=== PATIENT | male | born 1950 | race Caucasian/White ===

== ENCOUNTER → 2019-01-31 | Outpatient (CLI) | payer OTHER ==
[~2019-01-31] MED LIST: ACCU-CHEK1 EAC1 MC; ASPIRIN81 M1 PO; ATORVASTATIN CA80 M1 PO; CLEOCIN150 MG PO; Clopidogrel75 MG PO; FENOFIBRATE145 M1 PO; FLAGYL500 MG PO; METOPROLOL TART50 M1 PO; NORVASC5 MG PO; Peridex 473 ML473 ML PO; VITAMIN D50000 I3 PO; ZANTAC150 MG PO; ZESTRIL20 MG PO
== END | disposition home or self-care (01) ==
LOC: CARD 12:48
DX: R01.1 Cardiac murmur, unspecified (principal)

== ENCOUNTER → 2019-03-01 | Outpatient (CLI) | payer OTHER | END | disposition home or self-care (01) | LOC: US 14:37 | DX: E11.9 Type 2 diabetes mellitus without complications (principal); I10 Essential (primary) hypertension; F17.200 Nicotine dependence, unspecified, uncomplicated ==

== ENCOUNTER → 2020-01-16 | Outpatient (CLI) | payer OTHER | END | disposition home or self-care (01) | LOC: CARD 13:52 | PROVIDERS: ATTEND Internal Medicine Cardiovascular Disease | DX: R60.0 Localized edema (principal); Z72.0 Tobacco use ==

== ENCOUNTER 2020-11-14 14:20 | Emergency (ER) | payer OTHER ==
[~2020-11-14] VITALS: Ht 172.7 cm; Wt 103.9 kg
[~2020-11-14 14:20] MED LIST changes: -ARTHRITIS PAI42.5 GM T; -CRESTOR20 M1 PO; -FISH OIL CONC1000 M1 PO; -MAGNESIUM OXID420 M1 PO; -METFORMIN HYDR500 MG PO; -VITAMIN D350 MC2 PO
[2020-11-15] MEDS ORDERED: ARTHRITIS PAI42.5 GM T (10:53)
[2020-11-15] MEDS ORDERED: VITAMIN D350 MC2 PO (10:54)
[2020-11-15] MEDS ORDERED: FISH OIL CONC1000 M1 PO (10:58)
[2020-11-15] MEDS ORDERED: MAGNESIUM OXID420 M1 PO (11:00)
[2020-11-15] MEDS ORDERED: METFORMIN HYDR500 MG PO (11:01)
[2020-11-15] MEDS ORDERED: CRESTOR20 M1 PO (11:02)
== END 2020-11-14 16:45 | disposition left against medical advice (07) ==
LOC: ED 14:20
DX: R18.8 Other ascites (principal); K74.60 Unspecified cirrhosis of liver; Z79.82 Long term (current) use of aspirin; Z79.899 Other long term (current) drug therapy

== ENCOUNTER 2020-11-14 18:10 | Inpatient (IN) | payer OTHER ==
[~2020-11-14] VITALS: Ht 172.7 cm; Wt 102.7 kg
[2020-11-14 18:16] VITALS: BP 128/79
[2020-11-15 00:37] LABS: BASO % 0.6 % (0.0-1.0); EOS # 0.1 10*3/uL (0.0-0.4); EOS % 1.6 % (1.0-4.0); HEMATOCRIT 43.6 % (42.0-52.0); LYMPH # 1.2 10*3/uL (1.3-4.4); LYMPH % 16.8 % (27.0-41.0); MEAN CELL VOLUME 99.1 fl (80.0-94.0); MEAN CORPUSCULAR HGB 31.8 pg (27.0-31.0); MEAN CORPUSCULAR HGB CONC 32.1 g/dl (33.0-37.0); MEAN PLATELET VOLUME 10.3 fl (9.6-12.3); MONO # 0.8 10*3/uL (0.1-1.0); MONO % 11.4 % (3.0-9.0); NEUT # 4.9 10*3/uL (2.3-7.9); NEUT % 69.5 % (47.0-73.0); PLATELET COUNT AUTOMATED 257 10*3/uL (130-400); WHITE BLOOD COUNT 7.1 10*3/uL (4.8-10.8)
[2020-11-15 00:54] LABS: ALKALINE PHOSPHATASE 103 U/L (45-117); BUN 9 mg/dl (7-24); CHLORIDE 105 mmol/L (98-107); CREATININE 0.66 mg/dL (0.70-1.30); POTASSIUM 3.9 mmol/L (3.5-5.1); SGOT/AST 24 IU/L (3-35); SGPT/ALT 16 U/L (12-78); SODIUM 135 mmol/L (136-145); TOTAL PROTEIN 7.4 gm/dL (6.4-8.2)
[2020-11-15 01:00] VITALS: BP 121/87
[2020-11-15 06:53] LABS: BASO # 0.1 10*3/uL (0.0-0.1); BASO % 0.7 % (0.0-1.0); EOS # 0.2 10*3/uL (0.0-0.4); EOS % 2.2 % (1.0-4.0); HEMATOCRIT 43.2 % (42.0-52.0); LYMPH # 1.1 10*3/uL (1.3-4.4); LYMPH % 16.4 % (27.0-41.0); MEAN CELL VOLUME 99.1 fl (80.0-94.0); MEAN CORPUSCULAR HGB 32.1 pg (27.0-31.0); MEAN CORPUSCULAR HGB CONC 32.4 g/dl (33.0-37.0); MEAN PLATELET VOLUME 10.5 fl (9.6-12.3); MONO # 0.9 10*3/uL (0.1-1.0); MONO % 13.5 % (3.0-9.0); NEUT # 4.5 10*3/uL (2.3-7.9); NEUT % 66.9 % (47.0-73.0); PLATELET COUNT AUTOMATED 248 10*3/uL (130-400); RED BLOOD COUNT 4.36 10*6/uL (4.50-5.90); WHITE BLOOD COUNT 6.8 10*3/uL (4.8-10.8)
[2020-11-15 06:59] LABS: INTERNATIONAL NORM RATIO 1.2 (2.0-3.5)
[2020-11-15 07:09] LABS: ALBUMIN 3.1 gm/dl (3.1-4.5); BUN 9 mg/dl (7-24); CHLORIDE 102 mmol/L (98-107); POTASSIUM 3.5 mmol/L (3.5-5.1); SODIUM 135 mmol/L (136-145)
[2020-11-15 07:26] VITALS: BP 106/70
[2020-11-15 07:29] LABS: ALKALINE PHOSPHATASE 98 U/L (45-117); CHOLESTEROL 99 mg/dL (<200); LDL CHOLESTEROL 29 mg/dL (9-159); SGOT/AST 19 IU/L (3-35); SGPT/ALT 17 U/L (12-78); TOTAL PROTEIN 7.2 gm/dL (6.4-8.2); TRIGLYCERIDES 116 mg/dl (<150)
[2020-11-15 07:32] LABS: FREE T4 1.03 ng/dl (0.76-1.46)
[2020-11-15 07:42] LABS: VITAMIN D, 25-HYDROXY 38.7 ng/mL (30-100)
[2020-11-15] MEDS ORDERED: ARTHRITIS PAI42.5 GM T (10:53)
[2020-11-15] MEDS ORDERED: VITAMIN D350 MC2 PO (10:54)
[2020-11-15] MEDS ORDERED: FISH OIL CONC1000 M1 PO (10:58)
[2020-11-15] MEDS ORDERED: MAGNESIUM OXID420 M1 PO (11:00)
[2020-11-15] MEDS ORDERED: METFORMIN HYDR500 MG PO (11:01)
[2020-11-15] MEDS ORDERED: CRESTOR20 M1 PO (11:02)
[2020-11-15 11:32] VITALS: BP 113/80
[2020-11-15 14:37] VITALS: BP 94/62
== END 2020-11-15 15:19 | disposition left against medical advice (07) | DRG 433 ==
LOC: ED 18:10 → EDHOLD 22:51 → 5E 22:51
PROVIDERS: Internal Medicine; ADMIT Student in an Organized Health Care Education/Training Program; ATTEND Student in an Organized Health Care Education/Training Program
PROC: 0W9G3ZZ Drainage of Peritoneal Cavity, Percutaneous Approach (ICD-10-PCS; principal; 2020-11-15)
DX: K70.31 Alcoholic cirrhosis of liver with ascites (principal); E44.0 Moderate protein-calorie malnutrition; E87.3 Alkalosis; E87.1 Hypo-osmolality and hyponatremia; I25.10 Atherosclerotic heart disease of native coronary artery without angina pectoris; F10.20 Alcohol dependence, uncomplicated; E55.9 Vitamin D deficiency, unspecified; E11.42 Type 2 diabetes mellitus with diabetic polyneuropathy; F17.210 Nicotine dependence, cigarettes, uncomplicated; E11.65 Type 2 diabetes mellitus with hyperglycemia; F17.200 Nicotine dependence, unspecified, uncomplicated; E53.8 Deficiency of other specified B group vitamins; Z71.6 Tobacco abuse counseling; Z79.899 Other long term (current) drug therapy; Z95.5 Presence of coronary angioplasty implant and graft; Z79.82 Long term (current) use of aspirin; Z79.84 Long term (current) use of oral hypoglycemic drugs; Z68.34 Body mass index [BMI] 34.0-34.9, adult

== ENCOUNTER → 2020-11-14 | Outpatient (CLI) | payer OTHER ==
[~2020-11-14] MED LIST changes: +ARTHRITIS PAI42.5 GM T; +CRESTOR20 M1 PO; +FISH OIL CONC1000 M1 PO; +MAGNESIUM OXID420 M1 PO; +METFORMIN HYDR500 MG PO; +VITAMIN D350 MC2 PO
== END | disposition home or self-care (01) ==
LOC: US 11:06
PROVIDERS: ATTEND Nurse Practitioner Family
DX: R18.8 Other ascites (principal); K80.20 Calculus of gallbladder without cholecystitis without obstruction; R16.0 Hepatomegaly, not elsewhere classified

== ENCOUNTER → 2021-02-03 | Outpatient (CLI) | payer OTHER ==
[~2021-02-03] MED LIST changes: +ARTHRITIS PAI42.5 GM T; +CRESTOR20 M1 PO; +FISH OIL CONC1000 M1 PO; +MAGNESIUM OXID420 M1 PO; +METFORMIN HYDR500 MG PO; +VITAMIN D350 MC2 PO
== END | disposition home or self-care (01) ==
LOC: US 07:18
PROVIDERS: ATTEND Nurse Practitioner Family
DX: K80.20 Calculus of gallbladder without cholecystitis without obstruction (principal); R18.8 Other ascites; R16.0 Hepatomegaly, not elsewhere classified; K74.60 Unspecified cirrhosis of liver

== ENCOUNTER → 2021-03-06 | Outpatient (CLI) | payer OTHER ==
[2021-03-06 09:29] LABS: ACT PARTIAL THROMBO TIME 31.1 SECONDS (20.0-32.1); INTERNATIONAL NORM RATIO 1.1 (2.0-3.5)
[2021-03-06 09:55] LABS: ALBUMIN 3.5 gm/dl (3.1-4.5); ALKALINE PHOSPHATASE 124 U/L (45-117); BUN 15 mg/dl (7-24); CHLORIDE 102 mmol/L (98-107); CREATININE 0.98 mg/dL (0.70-1.30); IRON 48 ug/dL (65-175); SGOT/AST 14 IU/L (3-35); SGPT/ALT 20 U/L (12-78); SODIUM 135 mmol/L (136-145); TOTAL IRON BINDING CAPACITY 419 ug/dl (250-450)
[2021-03-06 10:03] LABS: BASO % 0.6 % (0.0-1.0); EOS # 0.2 10*3/uL (0.0-0.4); EOS % 2.1 % (1.0-4.0); HEMATOCRIT 45.6 % (42.0-52.0); LYMPH # 1.3 10*3/uL (1.3-4.4); LYMPH % 17.7 % (27.0-41.0); MEAN CELL VOLUME 88.4 fl (80.0-94.0); MEAN CORPUSCULAR HGB 28.3 pg (27.0-31.0); MEAN PLATELET VOLUME 10.1 fl (9.6-12.3); MONO # 0.9 10*3/uL (0.1-1.0); MONO % 13.1 % (3.0-9.0); NEUT # 4.7 10*3/uL (2.3-7.9); NEUT % 66.1 % (47.0-73.0); PLATELET COUNT AUTOMATED 284 10*3/uL (130-400); RED BLOOD COUNT 5.16 10*6/uL (4.50-5.90); RED CELL DISTRI WIDTH 14.6 % (0-14.5); WHITE BLOOD COUNT 7.2 10*3/uL (4.8-10.8)
[2021-03-06 13:09] LABS: BODY FLUID WBC 486 /uL
[2021-03-06 13:49] LABS: BF LYMPHOCYTES 36 %; BF MACROPHAGES 61 %; BF MESOTHELIALS 2 %; BF NEUTROPHILS 1 %
[2021-03-07 07:06] LABS: HEP B CORE AB TOTAL Negative (Negative); HEPATITIS B SURFACE AB Reactive (.); HEPATITIS B SURFACE AG Negative (Negative); HEPATITIS Be ANTIGEN Negative (Negative)
[2021-03-07 14:08] LABS: ANTI-SMOOTH MUSCLE ANTIBODY 10 Units (0-19)
== END | disposition home or self-care (01) ==
LOC: LAB 02:50 → EDSTATUS 09:30
PROVIDERS: ATTEND Internal Medicine Gastroenterology
DX: K74.60 Unspecified cirrhosis of liver (principal)

== ENCOUNTER → 2021-06-12 | Outpatient (CLI) | payer OTHER ==
[2021-06-12 12:23] LABS: BASO # 0.1 10*3/uL (0.0-0.1); BASO % 0.7 % (0.0-1.0); EOS # 0.1 10*3/uL (0.0-0.4); EOS % 1.2 % (1.0-4.0); HEMATOCRIT 45.4 % (42.0-52.0); LYMPH # 1.3 10*3/uL (1.3-4.4); LYMPH % 14.9 % (27.0-41.0); MEAN CELL VOLUME 89.5 fl (80.0-94.0); MEAN CORPUSCULAR HGB 29.8 pg (27.0-31.0); MEAN CORPUSCULAR HGB CONC 33.3 g/dl (33.0-37.0); MEAN PLATELET VOLUME 10.9 fl (9.6-12.3); MONO # 0.7 10*3/uL (0.1-1.0); MONO % 8.8 % (3.0-9.0); NEUT # 6.2 10*3/uL (2.3-7.9); NEUT % 73.8 % (47.0-73.0); PLATELET COUNT AUTOMATED 267 10*3/uL (130-400); RED BLOOD COUNT 5.07 10*6/uL (4.50-5.90); RED CELL DISTRI WIDTH 14.8 % (0-14.5); WHITE BLOOD COUNT 8.4 10*3/uL (4.8-10.8)
[2021-06-12 12:34] LABS: ACT PARTIAL THROMBO TIME 28.5 SECONDS (20.0-32.1); INTERNATIONAL NORM RATIO 1.1 (2.0-3.5)
[2021-06-12 12:39] LABS: ALBUMIN 3.7 gm/dl (3.1-4.5); ALKALINE PHOSPHATASE 91 U/L (45-117); BUN 26 mg/dl (7-24); CHLORIDE 100 mmol/L (98-107); CREATININE 1.38 mg/dL (0.70-1.30); POTASSIUM 4.5 mmol/L (3.5-5.1); SGOT/AST 18 IU/L (3-35); SGPT/ALT 22 U/L (12-78); SODIUM 135 mmol/L (136-145); TOTAL PROTEIN 8.7 gm/dL (6.4-8.2)
== END | disposition home or self-care (01) ==
LOC: EDSTATUS 13:00
PROVIDERS: ATTEND Nurse Practitioner Family
DX: R18.8 Other ascites (principal); K80.20 Calculus of gallbladder without cholecystitis without obstruction; Z79.01 Long term (current) use of anticoagulants; Z53.8 Procedure and treatment not carried out for other reasons

== ENCOUNTER → 2021-07-22 | Outpatient (CLI) | payer OTHER ==
[2021-07-22 09:10] LABS: BASO % 0.5 % (0.0-1.0); EOS # 0.2 10*3/uL (0.0-0.4); EOS % 1.8 % (1.0-4.0); HEMATOCRIT 44.9 % (42.0-52.0); LYMPH # 1.6 10*3/uL (1.3-4.4); LYMPH % 18.7 % (27.0-41.0); MEAN CELL VOLUME 89.3 fl (80.0-94.0); MEAN CORPUSCULAR HGB 29.6 pg (27.0-31.0); MEAN CORPUSCULAR HGB CONC 33.2 g/dl (33.0-37.0); MEAN PLATELET VOLUME 10.8 fl (9.6-12.3); MONO # 0.9 10*3/uL (0.1-1.0); MONO % 10.8 % (3.0-9.0); NEUT # 5.8 10*3/uL (2.3-7.9); NEUT % 67.8 % (47.0-73.0); PLATELET COUNT AUTOMATED 245 10*3/uL (130-400); RED BLOOD COUNT 5.03 10*6/uL (4.50-5.90); RED CELL DISTRI WIDTH 13.9 % (0-14.5); WHITE BLOOD COUNT 8.5 10*3/uL (4.8-10.8)
[2021-07-22 09:21] LABS: ACT PARTIAL THROMBO TIME 28.8 SECONDS (20.0-32.1); INTERNATIONAL NORM RATIO 1.1 (2.0-3.5)
[2021-07-22 09:25] LABS: ALKALINE PHOSPHATASE 67 U/L (45-117); BUN 31 mg/dl (7-24); CHLORIDE 102 mmol/L (98-107); CREATININE 1.41 mg/dL (0.70-1.30); POTASSIUM 4.2 mmol/L (3.5-5.1); SGOT/AST 16 IU/L (3-35); SGPT/ALT 18 U/L (12-78); SODIUM 134 mmol/L (136-145); TOTAL PROTEIN 9.1 gm/dL (6.4-8.2)
== END | disposition home or self-care (01) ==
LOC: LAB 01:13 → EDSTATUS 09:30
PROVIDERS: ATTEND Nurse Practitioner Family
DX: R18.8 Other ascites (principal); K29.70 Gastritis, unspecified, without bleeding

== ENCOUNTER → 2021-08-07 | Outpatient (CLI) | payer OTHER | END | disposition home or self-care (01) | LOC: CARD 14:38 | PROVIDERS: ATTEND Nurse Practitioner Family | DX: R00.1 Bradycardia, unspecified (principal) ==

== ENCOUNTER → 2021-09-05 | Outpatient (CLI) | payer OTHER | END | disposition home or self-care (01) | LOC: LAB 09:54 | PROVIDERS: ATTEND Nurse Practitioner Family | DX: K70.31 Alcoholic cirrhosis of liver with ascites (principal) ==

== ENCOUNTER → 2022-02-06 | Day surgery (SDC) | payer OTHER ==
[~2022-02-06] VITALS: Ht 172.7 cm; Wt 93.0 kg
== END | disposition home or self-care (01) ==
LOC: SDC 02-02 14:00
PROVIDERS: ATTEND Surgery
DX: K43.9 Ventral hernia without obstruction or gangrene (principal); Z53.8 Procedure and treatment not carried out for other reasons

== ENCOUNTER → 2022-03-30 | Day surgery (SDC) | payer OTHER ==
[2022-03-30] VITALS (7 sets, daily range): BP systolic 102–168; BP diastolic 61–91
[~2022-03-30] MED LIST changes: +COLACE100 MG PO; +HYDROCODONE-AC1 EAC1 PO; +ONDANSETRON HYDR4 M1 PO
== END | disposition home or self-care (01) ==
LOC: SDC 02-02 14:00 → EDSTATUS 09:30 → SDC 10:40
PROVIDERS: ATTEND Surgery
DX: K43.9 Ventral hernia without obstruction or gangrene (principal); I25.10 Atherosclerotic heart disease of native coronary artery without angina pectoris; E11.40 Type 2 diabetes mellitus with diabetic neuropathy, unspecified; F17.210 Nicotine dependence, cigarettes, uncomplicated; Z95.5 Presence of coronary angioplasty implant and graft

== ENCOUNTER 2023-03-03 14:39 | Emergency (ER) | payer OTHER ==
[~2023-03-03] VITALS: Ht 172.7 cm; Wt 81.2 kg
[2023-03-03 15:02] LABS: BASO % 0.3 % (0.0-1.0); EOS % 0.6 % (1.0-4.0); HEMATOCRIT 45.4 % (42.0-52.0); LYMPH % 13.9 % (27.0-41.0); MEAN CELL VOLUME 84.7 fl (80.0-94.0); MEAN CORPUSCULAR HGB 29.7 pg (27.0-31.0); MONO # 0.7 10*3/uL (0.1-1.0); MONO % 10.6 % (3.0-9.0); NEUT # 5.2 10*3/uL (2.3-7.9); NEUT % 73.9 % (47.0-73.0); PLATELET COUNT AUTOMATED 218 10*3/uL (130-400); RED BLOOD COUNT 5.36 10*6/uL (4.50-5.90); RED CELL DISTRI WIDTH 13.5 % (0-14.5)
[2023-03-03 15:29] LABS: ALKALINE PHOSPHATASE 197 U/L (46-116); BUN 26 mg/dl (9-23); CHLORIDE 92 mmol/L (98-107); LIPASE 115 U/L (12-53); POTASSIUM 5.1 mmol/L (3.4-5.1); SGPT/ALT 60 U/L (5-49)
[2023-03-03 15:34] LABS: ETHYL ALCOHOL < 3.0 mg/dl (<3)
[2023-03-03 17:38] LABS: BILIRUBIN Negative (Negative); BLOOD Negative (Negative); CLARITY Clear (Clear); COLOR Yellow (Yellow); GLUCOSE 3+ (Negative); KETONE 1+ (Negative); LEUKO ESTERASE Negative (Negative); NITRITE Negative (Negative); PH 6.5 (4.5-8.0); SPECIFIC GRAVITY >= 1.030 (1.001-1.030); UROBILINOGEN 0.2 E.U./dl (0.0-1.0)
[2023-03-03 17:54] LABS: RBC 0-2 rbc/hpf (0-2); WBC 0-2 wbc/hpf (0-5)
== END 2023-03-03 17:57 | disposition left against medical advice (07) ==
LOC: ED 14:39
PROVIDERS: Family Medicine
DX: E11.65 Type 2 diabetes mellitus with hyperglycemia (principal); I10 Essential (primary) hypertension; E78.5 Hyperlipidemia, unspecified; Z79.899 Other long term (current) drug therapy; Z20.822 Contact with and (suspected) exposure to COVID-19

== ENCOUNTER → 2023-09-01 | Outpatient (CLI) | payer OTHER ==
[~2023-09-01] MED LIST changes: +FUROSEMIDE40 MG PO; +GABAPENTIN100 M2 PO; +HUMALOG100 UNIT/1 SC; +LANTUS SOL100 UNIT/1 SC; +SPIRONOLACTONE100 MG PO
== END | disposition home or self-care (01) ==
LOC: US 07:33
PROVIDERS: ATTEND Internal Medicine
DX: K80.20 Calculus of gallbladder without cholecystitis without obstruction (principal); K70.31 Alcoholic cirrhosis of liver with ascites; N28.89 Other specified disorders of kidney and ureter; R16.0 Hepatomegaly, not elsewhere classified

== ENCOUNTER 2024-07-31 11:07 | Emergency (ER) | payer OTHER ==
[~2024-07-31] VITALS: Ht 172.7 cm; Wt 82.6 kg
[2024-07-31] MEDS ORDERED: SODIUM CHLORIDE 0.9% 1,000 ML IV ONE (11:50)
[2024-07-31 12:08] LABS: BASO % 0.4 % (0.0-1.0); EOS # 0.8 10*3/uL (0.0-0.4); EOS % 7.5 % (1.0-4.0); HEMATOCRIT 47.8 % (42.0-52.0); MEAN CELL VOLUME 91.9 fl (80.0-94.0); MEAN CORPUSCULAR HGB 30.4 pg (27.0-31.0); MEAN CORPUSCULAR HGB CONC 33.1 g/dl (33.0-37.0); MEAN PLATELET VOLUME 10.8 fl (9.6-12.3); MONO # 0.7 10*3/uL (0.1-1.0); MONO % 6.3 % (3.0-9.0); NEUT # 7.5 10*3/uL (2.3-7.9); NEUT % 72.3 % (47.0-73.0); PLATELET COUNT AUTOMATED 198 10*3/uL (130-400); RED CELL DISTRI WIDTH 14.6 % (0-14.5); WHITE BLOOD COUNT 10.3 10*3/uL (4.8-10.8)
[2024-07-31 12:19] LABS: ACT PARTIAL THROMBO TIME 30.4 SECONDS (20.0-32.1)
[2024-07-31 12:30] LABS: ALKALINE PHOSPHATASE 114 U/L (46-116); BUN 20 mg/dl (9-23); CHLORIDE 99 mmol/L (98-107); LIPASE 39 U/L (12-53); SGPT/ALT 10 U/L (5-49); TOTAL PROTEIN 7.7 gm/dL (6.0-8.0)
[2024-07-31] MEDS ORDERED: ANTI-DIARRHEAL2 MG PO (14:54)
== END 2024-07-31 15:10 | disposition home or self-care (01) ==
LOC: ED 11:07
PROVIDERS: Internal Medicine
DX: A08.4 Viral intestinal infection, unspecified (principal); F17.200 Nicotine dependence, unspecified, uncomplicated; Z91.048 Other nonmedicinal substance allergy status; Z79.4 Long term (current) use of insulin; Z79.899 Other long term (current) drug therapy; Z98.890 Other specified postprocedural states; Z95.5 Presence of coronary angioplasty implant and graft; Z90.89 Acquired absence of other organs

== ENCOUNTER → 2024-08-23 | Outpatient (CLI) | payer OTHER ==
[~2024-08-23] MED LIST changes: +ANTI-DIARRHEAL2 MG PO
== END | disposition home or self-care (01) ==
LOC: US 13:58
PROVIDERS: ATTEND Internal Medicine
DX: K70.30 Alcoholic cirrhosis of liver without ascites (principal); K80.20 Calculus of gallbladder without cholecystitis without obstruction